=== PATIENT | female | born 1945 | race Caucasian/White ===

== ENCOUNTER → 2018-07-08 12:39 | Outpatient (CLI) | payer MEDICARE, OTHER, SELFPAY | PROVIDERS: PCP Family Medicine; Visit Provider Family Medicine | DX: M85.851 Other specified disorders of bone density and structure, right thigh (principal); Z78.0 Asymptomatic menopausal state; Z82.62 Family history of osteoporosis | CPT/HCPCS: 77080 ==

== ENCOUNTER → 2018-09-20 08:00 | Outpatient (CLI) | payer MEDICARE, OTHER, SELFPAY ==
[2018-09-20 09:06] LABS: Add Manual Diff / Slide Review NO; Basophils Percent Auto 1.2 % (0-2); Eosinophils Percent Auto 2.7 % (2-4); Hemoglobin 14.1 g/dL (12.0-16.0); Lymphocytes Percent Auto 28.7 % (25-40); Mean Corpuscular HGB Conc 33.5 % (30-36); Mean Corpuscular Hemoglobin 30.4 PG (26-34); Mean Corpuscular Volume 90.9 fL (80-100); Monocytes Percent Auto 6.3 % (3-14); Neutrophils Absolute Auto 4600 /uL (3000-5900); Neutrophils Percent Auto 61.1 % (50-75); Platelet Count 372 X10^3/uL (150-400); Red Blood Cell Count 4.62 X10^6/uL (4.0-5.2); Red Cell Distribution Width 13.4 % (11.6-14.8); White Blood Cell Count 7.6 X10^3/uL (4.5-11.0)
[2018-09-20 09:11] LABS: Alanine Aminotransferase 40 IU/L (9-52); Albumin 4.5 g/dL (3.5-5.0); Albumin Globulin Ratio 1.4 (1.0-2.8); Alkaline Phosphatase 66 U/L (38-126); Aspartate Aminotransferase 36 IU/L (14-36); BUN Creatinine Ratio 24.3 (6-22); Bilirubin Total 0.6 mg/dL (0.2-1.3); Blood Urea Nitrogen 17 mg/dL (7-17); Calcium 9.3 mg/dL (8.4-10.2); Carbon Dioxide 31 mmol/L (22-32); Chloride 99 mmol/L (98-107); Cholesterol 227 mg/dL (140-199); Estimated Glomerular Filt Rate > 60.0 mL/min (>60); Globulin 3.3 g/dL (1.7-4.1); Glucose 72 mg/dL (80-110); HDL Cholesterol 63 mg/dL (40-60); HEMOLYSIS < 15 (0-50); LDL Cholesterol Calculated 152 mg/dL (<100); Potassium 4.2 mmol/L (3.4-5.1); Sodium 142 mmol/L (137-145); Total Protein 7.8 g/dL (6.3-8.2); Triglycerides 60 mg/dL (35-150)
[2018-09-20 10:10] LABS: Thyroid Stimulating Hormone 3.34 uIU/mL (0.47-4.68)
[2018-09-20 10:30] LABS: Hep C Virus Ab w/Reflex Quant NEGATIVE s/c (NEGATIVE)
== END ==
PROVIDERS: PCP Family Medicine; Visit Provider Family Medicine
DX: E78.5 Hyperlipidemia, unspecified (principal); I10 Essential (primary) hypertension
CPT/HCPCS: 36415; 80053; 80061; 84443; 85025; 86803

== ENCOUNTER → 2019-02-27 08:02 | Outpatient (CLI) | payer MEDICARE, OTHER, SELFPAY ==
[2019-02-27 09:23] LABS: Alanine Aminotransferase 32 IU/L (9-52); Albumin 4.2 g/dL (3.5-5.0); Albumin Globulin Ratio 1.3 (1.0-2.8); Alkaline Phosphatase 66 U/L (38-126); Aspartate Aminotransferase 27 IU/L (14-36); Bilirubin Total 0.5 mg/dL (0.2-1.3); Blood Urea Nitrogen 21 mg/dL (7-17); Calcium 9.1 mg/dL (8.4-10.2); Carbon Dioxide 31 mmol/L (22-32); Chloride 100 mmol/L (98-107); Cholesterol 210 mg/dL (140-199); Estimated Glomerular Filt Rate > 60.0 mL/min (>60); Globulin 3.3 g/dL (1.7-4.1); Glucose 83 mg/dL (80-110); HDL Cholesterol 61 mg/dL (40-60); HEMOLYSIS < 15 (0-50); LDL Cholesterol Calculated 138 mg/dL (<100); Potassium 3.9 mmol/L (3.4-5.1); Sodium 138 mmol/L (137-145); Total Protein 7.5 g/dL (6.3-8.2); Triglycerides 53 mg/dL (35-150)
== END ==
PROVIDERS: PCP Family Medicine; Visit Provider Family Medicine
DX: E78.5 Hyperlipidemia, unspecified (principal); I10 Essential (primary) hypertension
CPT/HCPCS: 36415; 80053; 80061

== ENCOUNTER → 2019-04-10 13:21 | Outpatient (CLI) | payer MEDICARE, OTHER, SELFPAY ==
--- NOTE | 2019-04-10 | DI.MG.S_ITS ---
BILATERAL DIGITAL SCREENING MAMMOGRAM 3D/2D WITH CAD: 04/10/2019 CLINICAL: Routine screening. Family history of breast cancer. Comparison is made to exams dated: 04/08/2018 mammogram, 02/26/2017 mammogram, and 01/31/2016 mammogram - [facility]. The tissue of both breasts is heterogeneously dense. This may lower the sensitivity of mammography. Current study was also evaluated with a Computer Aided Detection (CAD) system. No significant masses, calcifications, or other findings are seen in either breast. There has been no significant interval change. IMPRESSION: NEGATIVE There is no mammographic evidence of malignancy. A 1 year screening mammogram is recommended. This exam was interpreted at Station ID: [id number]. NOTE: For mammograms, a report in lay terms will be sent to the patient. Approximately 15% of breast malignancies will not be visualized mammographically. In the management of a palpable breast mass, a negative mammogram must not discourage biopsy of a clinically suspicious lesion. Electronically Signed By: Yunior green/juanito:04/10/2019 16:35:08 letter sent: Normal Exam ACR BI-RADS Category 1: Negative 3341F
== END ==
PROVIDERS: PCP Family Medicine; Visit Provider Family Medicine
DX: Z12.31 Encounter for screening mammogram for malignant neoplasm of breast (principal); Z80.3 Family history of malignant neoplasm of breast
CPT/HCPCS: 77063; 77067

== ENCOUNTER → 2019-04-26 13:37 | Outpatient (CLI) | payer MEDICARE, OTHER, SELFPAY ==
--- NOTE | 2019-04-26 | DI.ECHO.S_ITS ---
[facility]+ [facility] +---------+ : : [address] : : : : [id number] : : : : Phone: [phone]+ Echocardiogram Report + + :Name: YOVANI URIBE Study Date: 04/26/2019 Height: 64 in : :[facility] Location: [facility] Weight: 141 lb : : Gender: Female BSA: 1.7 m2 : :: 1945 Age: 73 yrs BP: 190/90 mmHg: :Reason For Study: Bradycardia : :Ordering Physician: : :Genny Riggs Performed By: Lupe Page : + + Interpretation Summary The patient had a blood pressure of 190/90 at the time of the study. She stated that this is normal for her when she goes to a hospital and that her physician is aware. She was not symptomatic. The left ventricle is normal in size, wall thickness, and systolic function without any focal wall motion abnormalities. The right ventricle is normal size. The right ventricular systolic function is normal. The right atrium is mildly dilated. There is mild to moderate mitral regurgitation. The right ventricular systolic pressure is estimated to be at least 26 mmHg based on an estimated right atrial pressure of 3 mm Hg. The ascending aorta is mildly enlarged. This is 3.8 cm and was previously 3.4 cm. Otherwise no significant change compared to prior study. Procedure: A two-dimensional transthoracic echocardiogram with color flow and Doppler was performed. The study quality was technically adequate. Comparison is made with the echocardiogram of 06/12/2011. The heart rate ranged between 52-63 bpm during the study. The patient was in normal sinus rhythm during the exam. Left Ventricle: The left ventricle is normal in size, wall thickness, and systolic function without any focal wall motion abnormalities. The ejection fraction is estimated to be 60-65%. Diastolic parameters suggest a relaxation abnormality of the left ventricle, consistent with probable normal filling pressures. Right Ventricle: The right ventricle is normal size. The right ventricular systolic function is normal. Atria: The left atrial size is normal. The right atrium is mildly dilated. There is no Doppler evidence for an interatrial shunt. Mitral Valve: The mitral valve leaflets appear mildly thickened, but open well. There is mild to moderate mitral regurgitation. Aortic Valve: The aortic valve is trileaflet. The aortic valve opens well. No aortic regurgitation is present. Tricuspid Valve: The tricuspid valve is normal in structure and function. There is mild tricuspid regurgitation. The right ventricular systolic pressure is estimated to be at least 26 mmHg based on an estimated right atrial pressure of 3 mm Hg. Pulmonic Valve: The pulmonic valve is not well visualized. There is trace pulmonic regurgitation. Great Vessels: The aortic root is normal size. The ascending aorta is mildly enlarged. The pulmonary is not well visualized. The IVC is of normal diameter and collapses greater than 50% with a sniff. This suggests a low right atrial pressure of 3 mm Hg. Pericardium/ Pleura There is no pericardial effusion. There is no pleural effusion. MMode/2D Measurements & Calculations LVIDd: 4.2 cm LVOT diam: 2.1 cm LVIDs: 2.7 cm Ao root diam: 3.5 cm FS: 35.4 % asc Aorta Diam: 3.8 cm EPSS: 0.14 cm IVSd: 0.70 cm LVPWd: 0.94 cm LV givens. diameter/BSA (cm/m^2): 2.5 LV sys. diameter/BSA (cm/m^2): 1.6 LA A2 area: 16.5 cm2 RA long axis: 4.7 cm LA A4 area: 20.0 cm2 RA area: 16.6 cm2 LA length (vol): 4.6 cm RA vol: 50.0 ml LA vol: 60.9 ml RA : 29.6 ml/m2 LA vol index: 36.1 ml/m2 IVC diam: 1.5 cm RVD1 (basal): 4.1 cm TAPSE: 2.2 cm Doppler Measurements & Calculations Ao V2 max: 104.5 cm/sec LVOT Max Jacky: 93.1 cm/sec Ao V2 mean: 75.7 cm/sec LV V1 max P.5 mmHg Ao max P.4 mmHg LV V1 VTI: 20.1 cm Ao mean P.5 mmHg KADEN(I,D): 3.0 cm2 Ao V2 VTI: 23.1 cm KADEN(V,D): 3.1 cm2 sev ratio: 0.87 KADEN indexed to BSA (cm^2/m^2): 1.8 MV E max jacky: 70.6 cm/sec TR max jacky: 228.1 cm/sec MV A max jacky: 81.2 cm/sec TR max P.9 mmHg MV E/A: 0.87 PA V2 max: 75.2 cm/sec Med Peak E' Jacky: 6.7 cm/sec PA V2 mean: 53.3 cm/sec E/E' med: 10.5 PA mean P.2 mmHg Lat Peak E' Jacky: 6.8 cm/sec PA Accel Time: 0.16 sec E/E' lat: 10.4 E/e' average: 10.4 MV dec time: 0.17 sec MV P1/2t: 48.5 msec MV P1/2t max jacky: 71.0 cm/sec SV(LVOT): 69.1 ml MVA(P1/2t): 4.5 cm2 Electronically signed by: Matt Levin M.D. on Reading Physician:04/26/2019 10:12 PM
== END ==
PROVIDERS: PCP Family Medicine; Visit Provider Family Medicine
DX: I08.1 Rheumatic disorders of both mitral and tricuspid valves (principal); R00.1 Bradycardia, unspecified; I77.89 Other specified disorders of arteries and arterioles
CPT/HCPCS: 93306

== ENCOUNTER → 2020-04-16 09:05 | Outpatient (CLI) | payer MEDICARE, OTHER, SELFPAY ==
--- NOTE | 2020-04-16 | DI.MG.S_ITS ---
BILATERAL DIGITAL SCREENING MAMMOGRAM 3D/2D WITH CAD: 04/16/2020 CLINICAL: Routine screening. Family history of breast cancer. Comparison is made to exams dated: 04/10/2019 mammogram, 04/08/2018 mammogram, and 02/26/2017 mammogram - [facility]. The tissue of both breasts is heterogeneously dense. This may lower the sensitivity of mammography. Current study was also evaluated with a Computer Aided Detection (CAD) system. There are benign vascular calcifications in both breasts. No significant masses, calcifications, or other findings are seen in either breast. There has been no significant interval change. IMPRESSION: There is no mammographic evidence of malignancy. A 1 year screening mammogram is recommended. This exam was interpreted at Station ID: [id number]. NOTE: For mammograms, a report in lay terms will be sent to the patient. Approximately 15% of breast malignancies will not be visualized mammographically. In the management of a palpable breast mass, a negative mammogram must not discourage biopsy of a clinically suspicious lesion. Electronically Signed By: Chrissie martin/juanito:04/16/2020 09:31:51 letter sent: Normal Exam ACR BI-RADS Category 2: Benign Finding(s) 3342F
== END ==
PROVIDERS: PCP Family Medicine; Referring Provider Family Medicine; Visit Provider Family Medicine
DX: Z12.31 Encounter for screening mammogram for malignant neoplasm of breast (principal); Z80.3 Family history of malignant neoplasm of breast
CPT/HCPCS: 77063; 77067

== ENCOUNTER → 2021-05-02 10:54 | Outpatient (CLI) | payer MEDICARE, OTHER, SELFPAY ==
--- NOTE | 2021-05-02 | DI.MG.S_ITS ---
BILATERAL DIGITAL SCREENING MAMMOGRAM 3D/2D WITH CAD: 05/02/2021 CLINICAL: Routine screening. Family history of breast cancer. Comparison is made to exams dated: 04/16/2020 mammogram, 04/10/2019 mammogram, and 04/08/2018 mammogram - [facility]. The tissue of both breasts is heterogeneously dense. This may lower the sensitivity of mammography. Current study was also evaluated with a Computer Aided Detection (CAD) system. There are benign vascular calcifications in both breasts. No significant masses, calcifications, or other findings are seen in either breast. There has been no significant interval change. IMPRESSION: BENIGN There is no mammographic evidence of malignancy. A 1 year screening mammogram is recommended. This exam was interpreted at Station ID: [id number]. NOTE: For mammograms, a report in lay terms will be sent to the patient. Approximately 15% of breast malignancies will not be visualized mammographically. In the management of a palpable breast mass, a negative mammogram must not discourage biopsy of a clinically suspicious lesion. Electronically Signed By: Kelvin brannon/juanito:05/02/2021 12:20:11 letter sent: Normal Exam ACR BI-RADS Category 2: Benign Finding(s) 3342F
== END ==
PROVIDERS: PCP Family Medicine; Referring Provider Family Medicine; Visit Provider Family Medicine
DX: Z12.31 Encounter for screening mammogram for malignant neoplasm of breast (principal)
CPT/HCPCS: 77063; 77067

== ENCOUNTER → 2021-08-11 16:54 | Outpatient (CLI) | payer MEDICARE, OTHER, SELFPAY ==
--- NOTE | 2021-08-11 | DI.MRI.S_ITS ---
PROCEDURE: MR CERVICAL SPINE WO/W CON INDICATIONS: DISEASE OF SPINAL CORD TECHNIQUE: Noncontrast sagittal T1 spin echo and T2 fast spin echo, sagittal STIR, foraminal oblique sagittal T2 fast spin echo, axial gradient echo or T2 fast spin echo through the cervical spine. After the administration of contrast, axial and sagittal T1 spin echo with fat saturation through the cervical spine. COMPARISON: [facility], MR, MR THORACIC SPINE WO/W CON, 08/11/2021, 17:20. FINDINGS: Image quality: Excellent. Alignment and curvature: There is partial for fusion variation of C2-3. Vertebral bodies are labeled based on appearance of 1st rib as T1. There is trace anterolisthesis of C4 on C5, C7 on T1, T1 on T2, T2 on T3 as well as trace retrolisthesis of C5 on C6, C6 on C7. Marrow: Marrow is normal in overall signal, without suspicious enhancement. Spinal cord: Visualized spinal cord has normal size and signal. No cerebellar tonsillar herniation. No abnormal intramedullary enhancement. Paraspinous soft tissues: No paravertebral masses or suspicious enhancement. Discs: Multilevel moderate to severe disc desiccation is present most notable at C5-6 and C6-7. C2-3: No disc bulge, spinal stenosis or foraminal narrowing. C3-4: Mild disc bulge with minimal canal narrowing. Moderate bilateral foraminal narrowing with uncovertebral hypertrophy. C4-5: Mild disc bulge with mild spinal stenosis. Moderate bilateral foraminal narrowing with uncovertebral hypertrophy. C5-6: Mild disc bulge with mild spinal stenosis. Moderate right and moderate to severe left foraminal narrowing with uncovertebral hypertrophy. C6-7: Mild disc bulge with minimal spinal stenosis. [id number] bilateral foraminal narrowing with uncovertebral hypertrophy. C7-T1: No disc bulge, spinal stenosis or foraminal narrowing. IMPRESSION: 1. Multilevel degenerative changes. 2. No definitively areas of abnormal cord or nerve root enhancement. Dictated by: Gin Whiting M.D. on 08/12/2021 at 14:00 Approved by: Gin Whiting M.D. on 08/12/2021 at 14:18
--- NOTE | 2021-08-11 16:58 | DI.MRI.S_ITS ---
PROCEDURE: MR THORACIC SPINE WO/W CON INDICATIONS: DISEASE OF SPINAL CORD UNSPECIFIED TECHNIQUE: Noncontrast sagittal T1 spin echo and T2 fast spin echo, sagittal STIR, axial T1 and T2 fast spin echo through the thoracic spine. After the administration of contrast, axial and sagittal T1 spin echo with fat saturation through the thoracic spine. COMPARISON: [facility], MR, MR CERVICAL SPINE WO/W CON, 08/11/2021, 17:20. FINDINGS: Image quality: Excellent. Alignment and curvature: There is normal bony alignment. Marrow: Marrow is of normal overall signal. No acute vertebral body compression fractures. Spinal cord: Visualized spinal cord is of normal signal and size, without abnormal enhancement. Paraspinous soft tissues: No paravertebral masses or abnormal enhancement. Miscellaneous: Central canal and foramina appear widely patent at all scanned levels. Minimal scattered disc desiccation is present. There is increased signal at the exiting nerve roots at the level of T9-10, T10-11, T11-12 without enhancement. IMPRESSION: 1. Scattered areas of minimal degenerative change. 2. No areas of abnormal enhancement. 3. 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 Dictated by: Gin Whiting M.D. on 08/12/2021 at 11:22 Approved by: Gin Whiting M.D. on 08/12/2021 at 12:00
== END ==
PROVIDERS: PCP Family Medicine; Referring Provider Specialist; Visit Provider Specialist
DX: M47.812 Spondylosis without myelopathy or radiculopathy, cervical region (principal); G95.9 Disease of spinal cord, unspecified; Z86.69 Personal history of other diseases of the nervous system and sense organs
CPT/HCPCS: 72156; 72157

== ENCOUNTER → 2021-09-18 12:02 | Outpatient (CLI) | payer MEDICARE, OTHER, SELFPAY ==
--- NOTE | 2021-09-18 12:05 | DI.MRI.S_ITS ---
PROCEDURE: MR HEAD/BRAIN WO/W CON INDICATIONS: Disease of spinal cord, unspecified TECHNIQUE: Noncontrast axial T1 spin echo, axial T2 fast spin echo, sagittal and axial FLAIR, coronal T2 fast spin echo, axial gradient echo, axial diffusion and ADC through the brain. After the administration of contrast, axial and coronal T1 spin echo with fat saturation through the brain. COMPARISON: [facility], MR, MR CERVICAL SPINE WO/W CON, 08/11/2021, 17:20. FINDINGS: Image quality: Excellent. CSF spaces: Basal cisterns are patent. No extra-axial fluid collections. Ventricles are normal in size and shape. Brain: No midline shift. No intracranial bleeds or masses. No abnormal intracranial enhancement. There is age-appropriate cerebral volume loss. Numerous foci of T2 weighted hyperintensity can be seen within the periventricular deep white matter. Several juxtacortical lesions can also be seen. The brainstem appears normal. Diffusion-weighted images demonstrate no acute ischemic insults. No chronic ischemic insults. Normal intravascular flow voids are present. Skull and face: Calvarial marrow is normal in signal. Orbits appear normal. Note is made of bilateral lens replacements. Sinuses: Sinuses and mastoids appear clear. IMPRESSION: Numerous foci of T2 weighted hyperintensity can be seen within the white matter, which are statistically most likely related to chronic small vessel ischemic change in a patient of this age. However, a demyelinating process (including multiple sclerosis) could be considered, given the juxtacortical lesions. Age-appropriate brain parenchymal volume loss is seen. No abnormal enhancement is seen. No findings of acute or subacute infarction can be seen. Dictated by: Ketan Gomez M.D. on 09/18/2021 at 12:02 Approved by: Ketan Gomez M.D. on 09/18/2021 at 12:05
== END ==
PROVIDERS: PCP Family Medicine; Referring Provider Specialist; Visit Provider Specialist
DX: Z86.69 Personal history of other diseases of the nervous system and sense organs (principal); G95.9 Disease of spinal cord, unspecified
CPT/HCPCS: 70553

== ENCOUNTER → 2022-01-15 09:38 | Outpatient (CLI) | payer MEDICARE, OTHER, SELFPAY ==
--- NOTE | 2022-01-15 | DI.RAD.S_ITS ---
PROCEDURE: XR DEXA AXIAL SKELETON INDICATIONS: Other specified disorders of bone density COMPARISON: None. FINDINGS: This blank DEXA report has been sent in error by the PACS system. The correct and complete report will be forthcoming in 1-2 days. Thank you for your patience and understanding. Dictated by: Miya Mcghee MD, PhD on 01/15/2022 at 15:04 Approved by: Miya Mcghee MD, PhD on 01/15/2022 at 15:04
== END ==
PROVIDERS: PCP Family Medicine; Referring Provider Family Medicine; Visit Provider Family Medicine
DX: M85.851 Other specified disorders of bone density and structure, right thigh (principal); Z78.0 Asymptomatic menopausal state; Z82.62 Family history of osteoporosis
CPT/HCPCS: 77080

== ENCOUNTER → 2022-06-05 14:51 | Outpatient (CLI) | payer MEDICARE, OTHER, SELFPAY ==
--- NOTE | 2022-06-05 14:55 | DI.MG.S_ITS ---
BILATERAL DIGITAL SCREENING MAMMOGRAM 3D/2D WITH CAD: 06/05/2022 CLINICAL: Routine screening. Comparison is made to exams dated: 05/02/2021 mammogram, 04/16/2020 mammogram, 04/10/2019 mammogram, 04/08/2018 mammogram, and 02/26/2017 mammogram - [facility]. The tissue of both breasts is heterogeneously dense. This may lower the sensitivity of mammography. Current study was also evaluated with a Computer Aided Detection (CAD) system. There are benign vascular calcifications in both breasts. No significant masses, calcifications, or other findings are seen in either breast. There has been no significant interval change. IMPRESSION: BENIGN There is no mammographic evidence of malignancy. A 1 year screening mammogram is recommended. Based on the Tyrer Cuzick model (a risk assessment model) the patient's lifetime risk is 13.4% and her 10 year risk is 13.4%. According to the ACR, ACS, and NCCN guidelines, an annual breast MRI exam along with mammogram is recommended if the patient's lifetime risk is 20% or greater. This exam was interpreted at Station ID: [id number]. NOTE: For mammograms, a report in lay terms will be sent to the patient. Approximately 15% of breast malignancies will not be visualized mammographically. In the management of a palpable breast mass, a negative mammogram must not discourage biopsy of a clinically suspicious lesion. Electronically Signed By: Nadeem curry/juanito:06/05/2022 18:02:40 letter sent: Normal Exam ACR BI-RADS Category 2: Benign Finding(s) 3342F
== END ==
PROVIDERS: PCP Family Medicine; Referring Provider Family Medicine; Visit Provider Family Medicine
DX: Z12.31 Encounter for screening mammogram for malignant neoplasm of breast (principal)
CPT/HCPCS: 77063; 77067

== ENCOUNTER → 2022-07-31 10:28 | Outpatient (ROUT) | payer MEDICARE, OTHER, SELFPAY ==
[2022-07-31 10:54] LABS: Prothrombin Time 11.8 SECONDS (10.1-12.7)
== END ==
PROVIDERS: PCP Family Medicine; Visit Provider Family Medicine
DX: D64.9 Anemia, unspecified (principal)
CPT/HCPCS: 85610

== ENCOUNTER → 2022-08-17 09:39 | Outpatient (CLI) | payer MEDICARE, OTHER, SELFPAY ==
[2022-08-17 13:14] LABS: COVID19 -Nasal RAPID Negative (Negative)
== END ==
PROVIDERS: PCP Family Medicine; Visit Provider Surgery
DX: Z01.812 Encounter for preprocedural laboratory examination (principal); Z20.822 Contact with and (suspected) exposure to COVID-19
CPT/HCPCS: 87635; C9803

== ENCOUNTER 2022-08-18 06:36 | Day surgery (SDC) | payer MEDICARE, OTHER, SELFPAY ==
--- NOTE | 2022-08-18 | PATH_ITS ---
[facility] Accession Number: [id number] . 01 Material submitted: . cecum - CECAL POLYP . 01 Clinical history: . SDC ANEMIA, UNSPECIFIED . 01 Diagnosis: Cecal Polyp, Biopsy: Colonic mucosa with no diagnostic abnormality, consistent with polypoid redundancy. Negative for serrated lesion, dysplasia or malignancy. Additional step-sections examined. [facility] 08/21/2022 1046 Local . 01 Electronically signed: . Sunny Collins MD, PhD, Pathologist NPI- [id number] . 01 Gross description: . CECAL POLYP: Received in formalin is 1 fragment(s) of benavides, soft tissue measuring 0.3 x 0.3 x 0.1 cm submitted entirely in 1 cassette(s) /CPE 08/19/2022 0732 Local . 01 Pathologist provided ICD-10: D64.9, K63.5 . 01 CPT . 329041 Performed at: 01 [facility] [address] [place] [address] [address], [place], [place] [id number] MD Yunior Smallwood MD Phone: [phone]
[2022-08-18] MEDS: LACTATED RINGERS 1,000 ML 200 ML IV (06:54)
[2022-08-18 07:08] VITALS: BP 173/77; PULSE 99; RESP 24; TEMP 37.2; O2SAT 98; BMI 24.0
--- NOTE | 2022-08-18 07:52 | PM.PREOP ---
Pre-operative Note Interval Note History & Physical reviewed/Exam performed by Physician: Yes Changes to H&P: No
[2022-08-18] MEDS: MIDAZOLAM 5 MG/5 ML VIAL 4 MG IV (08:04)
[2022-08-18] MEDS: fentaNYL 100 MCG/2 ML INJ IV (08:04)
--- NOTE | 2022-08-18 08:23 | PM.OP.EC ---
Operative Date/Time/Diagnoses Date of procedure: 08/18/22 Time of procedure: 08:23 Pre-op diagnosis: Anemia Post-op diagnosis: other (Colonic polyp, hiatal hernia) Procedure & Clinicians Study performed: Esophagoduodenoscopy and colonoscopy Same procedure as scheduled: Yes Indications: Anemia Surgeon: Sunny Mata Procedure Notes Procedure in detail: Medications: Conscious sedation using 4mg IV midazolam and 100mcg IV of fentanyl The history and physical was performed/updated and the patient is ASA class is 2 . The procedure was discussed in detail with the patient. Potential risks complications including infection, bleeding, missed diagnosis, perforation, need for surgery, and were explained. Their questions were answered and informed consent was obtained. Patient placed in left lateral decubitus position. Time out was performed. Procedural sedation was administered with Versed and Fentanyl. A bite block was placed. the scope was inserted into the mouth and advanced through the esophagus and into the stomach. The pylorus was intubated and the duodenum was normal to the 2nd portion. The scope was retroflexed within the stomach and there was a moderate-sized hiatal hernia. No ulcers, or significant gastritis.. The scope was withdrawn into the esophagus the Z line was seen at 40 cm from the incisions. There was no Mosley's esophagitis or masses or strictures. Stomach was desufflated and scope removed. Patient tolerated procedure well. Examination began with a thorough inspection of the perianal area there was no evidence of fissures, fistulae, external hemorrhoids or cutaneous malignancy. The colonoscopy scope was then placed into the anal canal and was advanced to the cecum, which was identified by the ileocecal valve, the appendiceal orifice and the confluence of the taenia. The scope was then slowly withdrawn examining colon thoroughly in all directions, irrigating it of any residual stool. FINDINGS 1. Hiatal hernia 2. Cecum-3 mm polyp the appendiceal orifice removed with biopsy forceps The patient tolerated the procedure well. They will be discharged once criteria are met. The prep was of good/excellent quality. The withdrawl time was 7 minutes. The sedation time was 22 minutes. Specimen(s): other (Cecal polyp) Complications: none Impression: Colonic polyp Post-procedure Recommendations: Colonscopy in 5 years Disposition: same day surgery
[2022-08-18 08:27] VITALS: BP 127/63; PULSE 68; RESP 21; TEMP 37; O2SAT 99
[2022-08-18 08:32] VITALS: BP 125/57; PULSE 63; RESP 21; O2SAT 98
--- NOTE | 2022-08-18 08:37 | SUR.PHASEI ---
Patient sitting up in no distress, awake but drowsy; abdomen soft and non-distended. VSS. Denies pain or nausea.
[2022-08-18 08:38] VITALS: BP 124/61; PULSE 63; RESP 21; O2SAT 98
[2022-08-18 08:39] VITALS: BP 134/57; PULSE 65; RESP 20; O2SAT 98
== END 2022-08-18 08:58 | disposition home or self-care (01) ==
PROVIDERS: PCP Family Medicine; Referring Provider Surgery; Visit Provider Surgery
PROC: 0DJD8ZZ Inspection of Lower Intestinal Tract, Via Natural or Artificial Opening Endoscopic (ICD-10-PCS; CPT 45378; principal; 2022-08-18 07:45)
PROC: 0DJ08ZZ Inspection of Upper Intestinal Tract, Via Natural or Artificial Opening Endoscopic (ICD-10-PCS; CPT 43235; 2022-08-18 07:45)
DX: D64.9 Anemia, unspecified (principal); K44.9 Diaphragmatic hernia without obstruction or gangrene; K63.5 Polyp of colon
CPT/HCPCS: 45380; 43235; 99152; J2250; J3010

== ENCOUNTER → 2023-06-28 11:07 | Outpatient (CLI) | payer MEDICARE, OTHER, SELFPAY ==
--- NOTE | 2023-06-28 | DI.MG.S_ITS ---
BILATERAL DIGITAL SCREENING MAMMOGRAM 3D/2D WITH CAD: 06/28/2023 CLINICAL: Routine screening. Family history of breast cancer. Comparison is made to exams dated: 06/05/2022 mammogram, 05/02/2021 mammogram, and 04/16/2020 mammogram - [facility]. There are scattered areas of fibroglandular density in both breasts (category b / 25%-50% glandular tissue). Current study was also evaluated with a Computer Aided Detection (CAD) system. There are benign vascular calcifications in both breasts. No significant masses, calcifications, or other findings are seen in either breast. There has been no significant interval change. IMPRESSION: BENIGN There is no mammographic evidence of malignancy. A 1 year screening mammogram is recommended. Based on the Tyrer Cuzick model (a risk assessment model) the patient's lifetime risk is 8.3% and her 10 year risk is 0.0%. According to the ACR, ACS, and NCCN guidelines, an annual breast MRI exam along with mammogram is recommended if the patient's lifetime risk is 20% or greater. This exam was interpreted at Station ID: [id number]. NOTE: For mammograms, a report in lay terms will be sent to the patient. Approximately 15% of breast malignancies will not be visualized mammographically. In the management of a palpable breast mass, a negative mammogram must not discourage biopsy of a clinically suspicious lesion. Electronically Signed By: Chrissie martin/juanito:06/28/2023 13:32:42 letter sent: Normal Exam ACR BI-RADS Category 2: Benign Finding(s) 3342F
== END ==
PROVIDERS: PCP Family Medicine; Referring Provider Family Medicine; Visit Provider Family Medicine
DX: Z12.31 Encounter for screening mammogram for malignant neoplasm of breast (principal); Z80.3 Family history of malignant neoplasm of breast
CPT/HCPCS: 77063; 77067

== ENCOUNTER → 2024-07-07 09:48 | Outpatient (CLI) | payer MEDICARE, OTHER, SELFPAY ==
--- NOTE | 2024-07-07 | DI.MG.S_ITS ---
BILATERAL DIGITAL SCREENING MAMMOGRAM 3D/2D WITH CAD: 07/07/2024 CLINICAL: Routine screening. Family history of breast cancer. Comparison is made to exams dated: 06/28/2023 mammogram, 06/05/2022 mammogram, and 05/02/2021 mammogram - [facility]. Both breasts are heterogeneously dense, which may obscure small masses (category c / 51-75% glandular tissue). Current study was also evaluated with a Computer Aided Detection (CAD) system. There are benign vascular calcifications in both breasts. No significant masses, calcifications, or other findings are seen in either breast. There has been no significant interval change. IMPRESSION: BENIGN There is no mammographic evidence of malignancy. A 1 year screening mammogram is recommended. Based on the Tyrer Cuzick model (a risk assessment model) the patient's lifetime risk is 11.2% and her 10 year risk is 0.0%. According to the ACR, ACS, and NCCN guidelines, an annual breast MRI exam along with mammogram is recommended if the patient's lifetime risk is 20% or greater. This exam was interpreted at Station ID: [id number]. NOTE: For mammograms, a report in lay terms will be sent to the patient. Approximately 15% of breast malignancies will not be visualized mammographically. In the management of a palpable breast mass, a negative mammogram must not discourage biopsy of a clinically suspicious lesion. Electronically Signed By: Kelvin brannon/juanito:07/07/2024 13:11:46 letter sent: Normal Exam ACR BI-RADS Category 2: Benign Finding(s) 3342F
== END ==
PROVIDERS: PCP Family Medicine; Referring Provider Family Medicine; Visit Provider Family Medicine
DX: Z12.31 Encounter for screening mammogram for malignant neoplasm of breast (principal); Z80.3 Family history of malignant neoplasm of breast; R92.333 Mammographic heterogeneous density, bilateral breasts
CPT/HCPCS: 77063; 77067

== ENCOUNTER → 2024-08-22 11:08 | Outpatient (CLI) | payer MEDICARE, OTHER, SELFPAY ==
--- NOTE | 2024-08-22 11:10 | DI.RAD.S_ITS ---
PROCEDURE: XR KNEE LT 3V INDICATIONS: Localized swelling, mass and lump, left lower limb TECHNIQUE: 3 views of the knee were acquired. COMPARISON: None. FINDINGS: Bones: No fractures or dislocations. Tricompartment osteophytes. At least mild medial and lateral compartment joint space loss. No suspicious bony lesions. Soft tissues: No joint effusion. No suspicious soft tissue calcifications. IMPRESSION: Degenerative arthritis of the left knee. Dictated by: Kayode Tijerina M.D. on 08/22/2024 at 13:43 Approved by: Kayode Tijerina M.D. on 08/22/2024 at 13:53
== END ==
PROVIDERS: PCP Family Medicine; Referring Provider Family Medicine; Visit Provider Family Medicine
DX: M17.12 Unilateral primary osteoarthritis, left knee (principal); R22.42 Localized swelling, mass and lump, left lower limb
CPT/HCPCS: 73562

== ENCOUNTER → 2024-09-04 11:52 | Outpatient (CLI) | payer MEDICARE, OTHER, SELFPAY ==
--- NOTE | 2024-09-04 11:54 | DI.RAD.S_ITS ---
PROCEDURE: XR DEXA AXIAL SKELETON INDICATIONS: DISORDERS OF BONE DENSITY COMPARISON: [facility], [place], XR DEXA AXIAL SKELETON, 01/15/2022, 10:16. FINDINGS: Lumbar Spine: L1-L4. Bone mineral density 0.863 g/cm2, T score -1.7. Left Hip: Bone mineral density 0.687 g/cm2, T score -2.1. Left Femoral Neck: Bone mineral density 0.580 g/cm2, T score -2.4. Right Hip: Bone mineral density 0.583 g/cm2, T score -2.9. Right Femoral Neck: Bone mineral density 0.444 g/cm2, T score -3.6. Fracture Risk Calculation (when applicable): 10-year fracture risk of a major osteoporotic fracture 30 percent and of a hip fracture 15 percent. (T score greater or equal to -1.0 to: NORMAL) (T score from -1.1 to -2.4: OSTEOPENIA) (T score less than or equal to -2.5: OSTEOPOROSIS) IMPRESSION: Osteoporosis. Follow-up guidelines as follows: Osteoporosis: Consider a repeat DEXA and Vertebral Fracture Assessment (VFA) exam in 2 years or sooner if medically necessary, to reassess this patient's status. Osteopenia: Consider a repeat DEXA in 2-3 years to reassess this patient's status, or if there is a new clinical indication. Normal: Consider a repeat DEXA in 5 years or sooner, or if there is a new clinical indication. All treatment decisions require clinical judgment and consideration of individual patient factors, including patient preferences, comorbidities, previous drug use, risk factors not captured in the FRAX model (e.g., frailty, falls, vitamin D deficiency, increased bone turnover, interval significant decline in bone density ) and possible under- or over-estimation of fracture risk by FRAX. In addition, the NOF Guide recommends that FDA-approved medical therapies be considered in postmenopausal women and men age >= 50 years with a: * Hip or vertebral (clinical or morphometric) fracture * T-score of <=-2.5 at the spine or hip * Ten-year fracture probability by FRAX of >= 3% for hip fracture or >=20% for major osteoporotic fracture. People with diagnosed cases of osteoporosis or at high risk for fracture should have regular bone mineral density tests. For patients eligible for Medicare, routine testing is allowed once every 2 years. The testing frequency can be increased to one year for patients who have rapidly progressing disease, those who are receiving or discontinuing medical therapy to restore bone mass, or have additional risk factors. Dictated by: Nadeem Stevens M.D. on 09/04/2024 at 15:31 Approved by: Nadeem Stevens M.D. on 09/04/2024 at 15:32
--- NOTE | 2024-09-04 11:54 | DI.US.S_ITS ---
PROCEDURE: US EXTREMITY NONVASC LOWER LT INDICATIONS: MASS LLE/DISORDERS OF BONE DENSITY TECHNIQUE: Real-time scanning was performed of the left knee, with image documentation. COMPARISON: [facility], [place], XR KNEE LT 3V, 08/22/2024, 11:08. FINDINGS: Focused ultrasound examination of anterior left knee inferior to the patella at patient's reported area of palpable lump shows and ill-defined hypoechoic area within anterior left knee soft tissue and areas of central echogenic foci as well as peripheral rim calcifications. No definite internal vascularity is seen. Small anechoic area is also noted within this structure. IMPRESSION: Heterogeneously hypoechoic area with internal cystic areas and calcifications along anterior aspect of tibia/distal patellar tendon and measures up to 2.5 x 1.9 x 1.2 cm in size. Finding could represent organizing hematoma . A small soft tissue neoplasm cannot be entirely excluded. Clinical and possible MRI without and with contrast follow-up is recommended. Dictated by: Yony Nam M.D. on 09/04/2024 at 16:10 Approved by: Yony Nam M.D. on 09/04/2024 at 16:17
== END ==
LOC: US 11:54
PROVIDERS: PCP Family Medicine; Referring Provider Family Medicine; Visit Provider Family Medicine
DX: M81.0 Age-related osteoporosis without current pathological fracture (principal); R22.42 Localized swelling, mass and lump, left lower limb
CPT/HCPCS: 76882; 77080

== ENCOUNTER → 2024-10-05 08:24 | Outpatient (CLI) | payer MEDICARE, OTHER, SELFPAY ==
--- NOTE | 2024-10-05 08:26 | DI.MRI.S_ITS ---
PROCEDURE: MR LOWER LEG LT WO/W CON INDICATIONS: MASS OF LEFT LOWER EXTREMITY TECHNIQUE: Noncontrast coronal T1 spin echo and STIR, sagittal T1 spin echo with fat saturation and STIR, axial T1 spin echo and T2 fast spin echo with fat saturation. After the administration of contrast, axial/sagittal/coronal T1 spin echo with fat saturation through the left lower leg. COMPARISON: None. FINDINGS: Image quality: Excellent. Bones: There is no marrow edema. No acute fracture or dislocation. 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 No suspicious bony lesions. No area of abnormal intraosseous enhancement. Soft tissues: Fiducial marker is placed over anterior aspect of proximal lower leg at the level of tibial tuberosity. There is a well-circumscribed T2 hyperintense and T1 hypointense structure within subcutaneous soft tissue anterior to the tibial tuberosity at patellar tendon insertion and measures up to 1.4 x 0.6 x 2.1 cm in size. There is no contrast enhancement within this structure. Mild adjacent edema is seen. There is a lobulated popliteal cyst measures 2.7 x 2 x 5.3 cm in size. Small left knee joint effusion is seen, no calcified intra-articular loose bodies. There is edema within medial head of gastrocnemius muscle suggestive of muscle strain/partial-thickness tear. No other muscle or tendon signal abnormality. No enhancing soft tissue mass or large peripherally enhancing drainable fluid collection. IMPRESSION: 1. 1.4 x 0.6 x 2.1 cm cystic structure within anterior proximal lower leg soft tissue at the level of tibial tuberosity near distal patellar tendon insertion. No contrast enhancement is noted within this structure and is suggestive of benign cystic lesion. Clinical correlation and follow-up is recommended. 2. No enhancing soft tissue mass. No drainable fluid collection. Diffuse subcutaneous soft tissue edema and swelling around mid to distal lower leg concerning for cellulitis. No abscess collection. 3. Suggestion of low to moderate grade muscle strain/partial-thickness tear involving medial head of gastrocnemius muscle. No other muscle or tendon signal abnormalities. 4. Osteoarthritic changes in left knee and ankle joints. No fracture or dislocation. No suspicious bony lesion or abnormal intraosseous enhancement. Dictated by: Yony Nam M.D. on 10/05/2024 at 16:03 Approved by: Yony Nam M.D. on 10/05/2024 at 16:34
== END ==
PROVIDERS: PCP Family Medicine; Referring Provider Family Medicine; Visit Provider Family Medicine
DX: R22.42 Localized swelling, mass and lump, left lower limb (principal); M17.12 Unilateral primary osteoarthritis, left knee; M94.262 Chondromalacia, left knee; M71.22 Synovial cyst of popliteal space [Baker], left knee; M25.462 Effusion, left knee
CPT/HCPCS: 73720; A9579

== ENCOUNTER → 2025-07-10 12:43 | Outpatient (CLI) | payer MEDICARE, OTHER, SELFPAY ==
--- NOTE | 2025-07-10 12:44 | DI.MG.S_ITS ---
MM screening mammo BI: 07/10/2025. BI-RADS: 1 CLINICAL: 79-year old female for bilateral screening mammogram. Tyrer-Cuzick lifetime risk of 2.3%. No personal or first-degree family history of breast cancer. PRIOR EXAMS 07/07/2024, 06/28/2023, 06/05/2022, 05/02/2021, 02/26/2017. MAMMOGRAPHY TECHNIQUE: 2D and 3D (tomosynthesis) digital mammographic views obtained, with additional images as needed for full coverage. Current study was also evaluated with a Computer Aided Detection (CAD) system. DENSITY C. The breasts are heterogeneously dense, which may obscure small masses. MAMMOGRAPHY FINDINGS Bilateral: No suspicious mass, asymmetry, microcalcification, or other abnormality seen. IMPRESSION: * No evidence of malignancy. RECOMMENDATIONS Bilateral * Annual screening mammography. OVERALL ASSESSMENT CATEGORY BI-RADS-1: Negative. The [employer] recommends annual screening mammography beginning at age 40 for women with average risk of breast cancer. ELECTRONICALLY SIGNED: Dayana Chauhan M.D. on 07/10/2025 at 04:14:05 PM PT Interpreting Station ID: [id number]
== END ==
LOC: MAMMO 12:43
PROVIDERS: PCP Family Medicine; Referring Provider Family Medicine; Visit Provider Family Medicine
DX: Z12.31 Encounter for screening mammogram for malignant neoplasm of breast (principal); R92.333 Mammographic heterogeneous density, bilateral breasts
CPT/HCPCS: 77063; 77067